=== PATIENT | male | born 1995 | race African-American/Black ===

== ENCOUNTER 2020-05-02 16:12 | Emergency (ER) | payer OTHER, SELFPAY ==
--- NOTE | ~2020-05-02 | XR_ITS ---
EXAMINATION: XR knee LT 3V DATE: 05/02/2020 17:21 INDICATION: Left knee injury and pain. TECHNIQUE: 3 views of left knee were obtained. COMPARISON: None. FINDINGS: Bone alignment is normal. No fracture. There is mild osteoarthritis of medial compartment. There is a moderate-sized knee joint effusion. IMPRESSION: 1. Mild left knee osteoarthritis. 2. Moderate-sized left knee joint effusion. Reviewed, dictated and finalized at location A. [employer] TECH[employer]ICIAN
[2020-05-02 16:17] VITALS: BP 143/89; PULSE 107; RESP 16; TEMP 36.7; O2SAT 100
[2020-05-02 16:31] VITALS: BP 145/100; PULSE 90; RESP 17; TEMP 36.6; O2SAT 97
--- NOTE | 2020-05-02 17:42 | ED.GENADULT ---
HPI - General Adult General Chief complaint: Extremity Injury, Lower Stated complaint: left knee injury Time Seen by Provider: 05/02/20 16:35 Source: patient Mode of arrival: ambulatory Limitations: no limitations History of Present Illness HPI narrative: Patient presents with chief complaint of left knee pain and swelling that presented after pulling a device at work and is sliding back and hitting him in the lateral aspect of his left knee. Patient reports pain with weightbearing and flexion of the left knee. Patient denies prior injury to the knee. Patient denies any pain distally or proximal to the left knee. He denies any other injuries or concerns. Related Data Allergies Allergy/AdvReac Type Severity Reaction Status Date / Time No Known Allergies Allergy Verified 05/02/20 17:56 Review of Systems Review of Systems: Narrative: CONSTITUTIONAL: Denies fever, chills, or sweats. EYES: Denies visual changes, redness, or discharge. ENT: Denies rhinorrhea, congestion, sore throat, or otalgia. CARDIOVASCULAR: Denies chest pain, palpitations, or edema. RESPIRATORY: Denies cough or dyspnea. GASTROINTESTINAL: Denies abdominal pain, nausea, vomiting, or diarrhea. GENITOURINARY: Denies dysuria or hematuria. SKIN: Denies rash or itching. MUSCULOSKELETAL: Reports left knee pain denies back pain or myalgia. NEUROLOGIC: Denies headache, numbness, dizziness, or weakness. PSYCHIATRIC: Denies anxiety or depression. PMFSH Social History Social History Gender identity (if verbalized by the patient): Male Exam Narrative: Exam Narrative: GENERAL: Well-appearing, well-nourished, and in no acute distress. HEAD: Normocephalic, atraumatic. EYES: PERRLA and EOMI. ENT: Nares clear, no rhinorrhea or epistaxis. Mucous membranes moist. CHEST: No respiratory distress. No tachypnea. EXTREMITIES: Mild edema noted to left knee. There is no erythema or ecchymosis appreciated. There is no tenderness with palpation of the anterior posterior aspect of the knee however patient declined flexion due to discomfort. Unable to perform anterior posterior drawer test or Argelia's maneuver. No tenderness with palpation proximal or distal to the knee. SKIN: Warm, dry, no rash. NEURO: No focal deficits. Alert and oriented x3. PSYCH: Normal mood and affect. Course Vital Signs Vital signs: Vital Signs Temperature 98.0 F 05/02/20 16:17 Pulse Rate 107 H 05/02/20 16:17 Respiratory Rate 16 05/02/20 16:17 Blood Pressure 143/89 H 05/02/20 16:17 Pulse Oximetry 100 05/02/20 16:17 Temperature 97.9 F 05/02/20 16:31 Pulse Rate 88 05/02/20 18:01 Respiratory Rate 14 05/02/20 18:01 Blood Pressure 145/99 H 05/02/20 18:01 Pulse Oximetry 98 05/02/20 18:01 Medical Decision Making MDM Narrative Medical decision making narrative: There is an effusion in the left knee. No acute fractures. Patient will be put in Jonas wrap as he know is able to ambulate better and better flex and extend knee. instructed to follow-up with occupational medicine or drug and alcohol treatment specialist for further investigation to his symptoms. Discussed tendon/ligament injury likely with effusion. Patient instructed to elevate rest and to ice. Patient prescribed naproxen and cyclobenzaprine for discomfort. Differential Diagnosis Differential Diagnosis: Fracture, sprain, strain Vital Signs Vital Signs: Vital Signs Temperature 98.0 F 05/02/20 16:17 Pulse Rate 107 H 05/02/20 16:17 Respiratory Rate 16 05/02/20 16:17 Blood Pressure 143/89 H 05/02/20 16:17 Pulse Oximetry 100 05/02/20 16:17 Temperature 97.9 F 05/02/20 16:31 Pulse Rate 88 05/02/20 18:01 Respiratory Rate 14 05/02/20 18:01 Blood Pressure 145/99 H 05/02/20 18:01 Pulse Oximetry 98 05/02/20 18:01 Imaging Data Radiologist's impression: ITS Impressions Knee X-Ray 05/02/20 17:27 IMPRESSION: 1. Mild left knee osteoarthritis. 2. Moderate-sized left knee joint effusion.
[2020-05-02] MEDS: Please add drug allergy info to patient profile. 1 EACH XX (17:57)
[2020-05-02] MEDS: KETOROLAC (*BKC) 60 MG/2 ML VIAL 30 MG IM (17:57)
[2020-05-02 18:01] VITALS: BP 145/99; PULSE 88; RESP 14; O2SAT 98
[2020-05-02 18:28] VITALS: BP 156/78; PULSE 97; RESP 17; O2SAT 96
--- NOTE | 2020-05-10 08:35 | PC.NURSE ---
LATE ENTRY This note is being entered to document information to the patient's record. The following information was omitted on May 02, 2020 by Savita Villagomez RN. Charted under initial note injury was to patients RIGHT KNEE, and also charted RIGHT KNEE under wound assessment. This is an error. Correct knee was LEFT knee. /SM
== END 2020-05-02 18:30 | disposition home or self-care (01) ==
PROVIDERS: Emergency Provider Emergency Medicine
DX: M25.462 Effusion, left knee (principal); M17.12 Unilateral primary osteoarthritis, left knee
CPT/HCPCS: 73562; 96372; 99283; J1885